=== PATIENT | female | born 1960 | race Caucasian/White ===

== ENCOUNTER → 2020-10-16 12:33 | Outpatient (CLI) | payer OTHER, SELFPAY ==
--- NOTE | 2020-10-16 | DI.RAD.S_ITS ---
PROCEDURE: XR LUMBAR SPINE 2-3V INDICATIONS: BACK/LEG PAIN TECHNIQUE: 3 views of the lumbar spine were acquired. Lateral view is limited by obliquity COMPARISON: None. FINDINGS: Bones: 5 [id number] vertebrae are present. There is normal bony alignment. No vertebral body compression fractures. No suspicious bony lesions. Soft tissues: Overlying bowel gas pattern is normal. No suspicious soft tissue calcifications. IMPRESSION: Unremarkable lumbar spine radiographs Dictated by: Konrad Hawley M.D. on 10/16/2020 at 13:51 Approved by: Konrad Hawley M.D. on 10/16/2020 at 14:12
== END ==
PROVIDERS: Referring Provider Chiropractor; Visit Provider Chiropractor
DX: M54.5 Low back pain (principal); M79.605 Pain in left leg
CPT/HCPCS: 72100

== ENCOUNTER 2022-11-18 17:11 | Emergency (ER) | payer OTHER, SELFPAY ==
[2022-11-18 17:46] VITALS: BP 148/99; PULSE 76; RESP 16; TEMP 36.1; O2SAT 99; BMI 30.7
--- NOTE | 2022-11-18 17:51 | DI.RAD.S_ITS ---
PROCEDURE: XR CHEST 1V INDICATIONS: chest pain TECHNIQUE: One view of the chest was acquired. COMPARISON: None. FINDINGS: Surgical changes and devices: None. Lungs and pleura: Lungs are clear. No pleural effusions or pneumothorax. Mediastinum: Mediastinal contours appear normal. Heart size is normal. Bones and chest wall: No suspicious bony lesions. Overlying soft tissues appear unremarkable. IMPRESSION: No acute pulmonary process. Dictated by: Liberty Salmeron M.D. on 11/18/2022 at 18:22 Approved by: Liberty Salmeron M.D. on 11/18/2022 at 18:22
[2022-11-18 18:30] LABS: Prothrombin Time 11.2 SECONDS (10.1-12.7)
[2022-11-18 18:33] LABS: PTT Partial Thromboplastin Tim 32 SECONDS (26-36)
[2022-11-18 18:37] LABS: Alanine Aminotransferase 57 IU/L (<35); Albumin 4.7 g/dL (3.5-5.0); Albumin Globulin Ratio 1.5 (1.0-2.8); Alkaline Phosphatase 72 U/L (38-126); Aspartate Aminotransferase 37 IU/L (14-36); BUN Creatinine Ratio 22.4 (6-22); Bilirubin Total 0.5 mg/dL (0.2-1.3); Blood Urea Nitrogen 17 mg/dL (7-17); Calcium 9.8 mg/dL (8.4-10.2); Carbon Dioxide 24 mmol/L (22-32); Chloride 104 mmol/L (98-107); Creatine Kinase 129 U/L (30-135); Estimated Glomerular Filt Rate > 60 mL/min (>60); Globulin 3.2 g/dL (1.7-4.1); Glucose 92 mg/dL (80-110); HEMOLYSIS < 15 (0-50); Lipase 117 U/L (23-300); Magnesium 1.9 mg/dL (1.6-2.3); Potassium 3.9 mmol/L (3.4-5.1); Sodium 137 mmol/L (137-145); Total Protein 7.9 g/dL (6.3-8.2)
[2022-11-18 18:48] LABS: Add Manual Diff / Slide Review NO; Basophils Absolute Auto 0 /uL (0-100); Basophils Percent Auto 0.5 % (0-2); Eosinophils Absolute Auto 100 /uL (0-450); Eosinophils Percent Auto 2.8 % (2-4); Hematocrit 39.3 % (36-46); Hemoglobin 13.8 g/dL (12.0-16.0); Lymphocytes Absolute Auto 1200 /uL (1100-4500); Lymphocytes Percent Auto 23.5 % (25-40); Mean Corpuscular HGB Conc 35.1 % (30-36); Mean Corpuscular Hemoglobin 32.5 PG (26-34); Mean Corpuscular Volume 92.6 fL (80-100); Monocytes Absolute Auto 400 /uL (0-900); Monocytes Percent Auto 6.9 % (3-14); Neutrophils Absolute Auto 3400 /uL (1500-7000); Neutrophils Percent Auto 66.3 % (50-75); Platelet Count 287 X10^3/uL (150-400); Red Blood Cell Count 4.24 X10^6/uL (4.0-5.2); Red Cell Distribution Width 12.6 % (11.6-14.8); White Blood Cell Count 5.1 X10^3/uL (4.5-11.0)
[2022-11-18 18:49] LABS: Troponin I < 0.012 ng/mL (0.01-0.034)
[2022-11-18] MEDS: ASPIRIN 81 MG CHEW TAB 324 MG PO (21:29)
[2022-11-18 21:39] VITALS: BP 171/95; PULSE 67; RESP 16; O2SAT 99
[2022-11-18 21:40] LABS: Creatine Kinase 102 U/L (30-135)
[2022-11-18 22:08] LABS: Troponin I < 0.012 ng/mL (0.01-0.034)
--- NOTE | 2022-11-18 22:19 | ED_ITS ---
HPI - Chest Pain General Chief Complaint: Chest Pain Stated Complaint: Chest tightness,L arm achey, indigestion Time Seen by Provider: 11/18/22 18:12 Source: patient Mode of arrival: Ambulatory Limitations: no limitations History of Present Illness HPI narrative: Patient is a 61-year-old female who is here for evaluation of chest tightness and achiness in her left arm. No shortness of breath. No fevers. No nausea or vomiting. She is never had symptoms like this in the past. It started yesterday afternoon when she was at home. Nothing makes it worse or better. She is not tried anything for the symptoms prior to arrival. She is had consistent symptoms since the onset. She went to bed with it last night. She woke up with it this morning. Has had it all day today. Has never had any risk stratification testing. Had a mother and father who both had heart attacks in their late 60s. Related Data Previous Rx's Medication Instructions Recorded prednisone 20 mg tablet 20 mg PO DAILY #6 tabs 11/18/22 Allergies Allergy/AdvReac Type Severity Reaction Status Date / Time No Known Drug Allergies Allergy Verified 11/18/22 17:46 Review of Systems Constitutional Constitutional: Reports system reviewed and no additional complaints, except as documented Cardiovascular Cardiovascular: Reports system reviewed and no additional complaints, except as documented Respiratory Respiratory: Reports system reviewed and no additional complaints, except as documented Integumentary/Breasts Skin/Breast: Reports system reviewed and no additional complaints, except as documented Neurologic Neurologic: Reports system reviewed and no additional complaints, except as documented Hematologic/Lymphatic On Anticoagulants: No Patient History Social History Smoking Status: Never smoker Smoking Status: Never smoker alcohol intake frequency: a few times a week Substance Use Type: does not use Exam Initial Vital Signs Initial Vital Signs: Vital Signs Temperature 97.0 F L 11/18/22 17:46 Pulse Rate 76 11/18/22 17:46 Respiratory Rate 16 11/18/22 17:46 Blood Pressure 148/99 H 11/18/22 17:46 Pulse Oximetry 99 11/18/22 17:46 Oxygen Delivery Method Room Air 11/18/22 17:46 Const General: cooperative, comfortable and No ill appearing HENMT Head: normal to inspection and normocephalic Resp Effort & Inspection: normal respiratory effort Auscultation: clear to auscultation bilaterally Cardio Rate: regular rate Rhythm: regular rhythm Neuro General: patient alert, patient awake and moves all extremities Extrem General: normal to inspection and capillary refill normal Psych Appearance: grossly normal and well kempt Scores HEART Score Heart Score history: Slightly Suspicious Heart Score EKG: Normal Heart Score Age: 45-64 years old Heart Score risk factors: 1-2 risk factors Heart Score troponin: < or = to normal limit Heart Score Total: 2 Course Orders Ordered: ED Orders 11/18/22 17:51 XR chest 1V Stat EKG-12 Lead Stat 11/18/22 18:15 Complete Blood Count AUTO DIFF Stat Comprehensive Metabolic Panel Stat Lipase Stat Magnesium Stat PTT Partial Thromboplastin Gurvinder Stat Prothrombin Time INR Stat Troponin & CK Cardiac Panel Stat 11/18/22 21:10 Troponin & CK Cardiac Panel Stat Discontinued Medications Albuterol (Albuterol Hfa Prepack) 1 box MISC SEEINSTR ONE Stop: 11/18/22 22:20 Last Admin: 11/18/22 22:44 Dose: Not Given Documented By: MINAL Aspirin (Aspirin 81 Mg Chew Tab) 324 mg PO NOW ONE Stop: 11/18/22 17:52 Last Admin: 11/18/22 21:29 Dose: 324 mg Documented By: SB Vital Signs Vital signs: Vital Signs - 8 hr 11/18/22 21:39 11/18/22 22:57 Pulse Rate 67 66 Respiratory Rate 16 Blood Pressure 171/95 H Pulse Oximetry 99 96 Oxygen Delivery Method Room Air Room Air MDM - Chest Pain Lab Data Attestation: I reviewed the patient's lab results. 11/18/22 18:15 11/18/22 18:15 Labs: Lab Results 11/18/22 11/18/22 11/18/22 Range/Units 18:15 18:15 18:15 WBC 5.1 (4.5-11.0) X10^3/uL RBC 4.24 (4.0-5.2) X10^6/uL Hgb 13.8 (12.0-16.0) g/dL Hct 39.3 (36-46) % MCV 92.6 (80-100) fL MCH 32.5 (26-34) PG MCHC 35.1 (30-36) % RDW 12.6 (11.6-14.8) % Plt Count 287 (150-400) X10^3/uL Neut % (Auto) 66.3 (50-75) % Lymph % (Auto) 23.5 L (25-40) % Clayton % (Auto) 6.9 (3-14) % Eos % (Auto) 2.8 (2-4) % Baso % (Auto) 0.5 (0-2) % Neut # (Auto) 3400 (2581-5241) /uL Lymph # (Auto) 1200 (6834-8875) /uL Clayton # (Auto) 400 (0-900) /uL Eos # (Auto) 100 (0-450) /uL Baso # (Auto) 0 (0-100) /uL PT 11.2 (10.1-12.7) SECONDS INR 1.0 (0.9-1.3) APTT 32 (26-36) SECONDS Sodium 137 (137-145) mmol/L Potassium 3.9 (3.4-5.1) mmol/L Chloride 104 (98-107) mmol/L Carbon Dioxide 24 (22-32) mmol/L BUN 17 (7-17) mg/dL Creatinine 0.76 (0.52-1.04) mg/dL Estimated GFR > 60 (>60) mL/min BUN/Creatinine Ratio 22.4 H (6-22) Glucose 92 (80-110) mg/dL Calcium 9.8 (8.4-10.2) mg/dL Magnesium 1.9 (1.6-2.3) mg/dL Total Bilirubin 0.5 (0.2-1.3) mg/dL AST 37 H (14-36) IU/L ALT 57 H (<35) IU/L Alkaline Phosphatase 72 (38-126) U/L Total Creatine Kinase 129 (30-135) U/L CK-MB (CK-2) TNP CK-MB (CK-2) Rel Index TNP Troponin I < 0.012 (0.01-0.034) ng/mL Total Protein 7.9 (6.3-8.2) g/dL Albumin 4.7 (3.5-5.0) g/dL Globulin 3.2 (1.7-4.1) g/dL Albumin/Globulin Ratio 1.5 (1.0-2.8) Lipase 117 (23-300) U/L 11/18/22 Range/Units 21:10 WBC (4.5-11.0) X10^3/uL RBC (4.0-5.2) X10^6/uL Hgb (12.0-16.0) g/dL Hct (36-46) % MCV (80-100) fL MCH (26-34) PG MCHC (30-36) % RDW (11.6-14.8) % Plt Count (150-400) X10^3/uL Neut % (Auto) (50-75) % Lymph % (Auto) (25-40) % Clayton % (Auto) (3-14) % Eos % (Auto) (2-4) % Baso % (Auto) (0-2) % Neut # (Auto) (3347-6798) /uL Lymph # (Auto) (9215-3891) /uL Clayton # (Auto) (0-900) /uL Eos # (Auto) (0-450) /uL Baso # (Auto) (0-100) /uL PT (10.1-12.7) SECONDS INR (0.9-1.3) APTT (26-36) SECONDS Sodium (137-145) mmol/L Potassium (3.4-5.1) mmol/L Chloride (98-107) mmol/L Carbon Dioxide (22-32) mmol/L BUN (7-17) mg/dL Creatinine (0.52-1.04) mg/dL Estimated GFR (>60) mL/min BUN/Creatinine Ratio (6-22) Glucose (80-110) mg/dL Calcium (8.4-10.2) mg/dL Magnesium (1.6-2.3) mg/dL Total Bilirubin (0.2-1.3) mg/dL AST (14-36) IU/L ALT (<35) IU/L Alkaline Phosphatase (38-126) U/L Total Creatine Kinase 102 (30-135) U/L CK-MB (CK-2) TNP CK-MB (CK-2) Rel Index TNP Troponin I < 0.012 (0.01-0.034) ng/mL Total Protein (6.3-8.2) g/dL Albumin (3.5-5.0) g/dL Globulin (1.7-4.1) g/dL Albumin/Globulin Ratio (1.0-2.8) Lipase (23-300) U/L Imaging Data Chest x-ray: Radiologist's Impression: PROCEDURE:? XR CHEST 1V ? INDICATIONS:? chest pain ? TECHNIQUE:? One view of the chest was acquired.? ? COMPARISON:? None. ? FINDINGS:? ? Surgical changes and devices:? None.? ? Lungs and pleura:? Lungs are clear.? No pleural effusions or pneumothorax.? ? Mediastinum:? Mediastinal contours appear normal.? Heart size is normal.? ? Bones and chest wall:? No suspicious bony lesions.? Overlying soft tissues appear unremarkable.? ? IMPRESSION:? No acute pulmonary process. ECG Data Attestation: I personally reviewed and interpreted this ECG as follows: Interpretation: Sinus rhythm Ventricular rate is 72 Normal axis Normal QRS Normal QTC No ST T wave changes MDM Narrative Medical decision making narrative: Patient has had 2- troponins. The 1st troponin was greater than 12 hours after the onset of consistent symptoms. She has a low risk heart score. Low suspicion for ACS however given her family history she does require further risk stratification and advised that she contact her primary doctor to discuss this. Her chest x-ray is unremarkable. I have low suspicion for pulmonary embolism. Will discharge patient home strict return precautions. She expressed understanding and agreement with plan. Discharge Plan Departure Patient Disposition: Home Clinical Impression: Atypical chest pain Instructions: DI for Atypical Chest Pain Activity Restrictions/Additional Instructions: I do recommend that you talk with your primary doctor about the indications for a stress test. Continue to take all medications as directed. Return to the em ergency department for new or worsening symptoms. The prednisone that was sent to [facility] was inadvertently placed under your chart. You do not need to take the prednisone. You can tell the pharmacy not to fill this prescription if they call you. Prescriptions: New prednisone 20 mg tablet 20 mg PO DAILY Qty: 6 0RF Referrals: Miscellaneous,[facility] [Primary Care Provider] - Stand Alone Forms: Patient Portal/API
[2022-11-18 22:57] VITALS: PULSE 66; O2SAT 96
== END 2022-11-18 22:58 | disposition home or self-care (01) ==
PROVIDERS: Emergency Medicine; Emergency Provider Emergency Medicine
DX: R07.89 Other chest pain (principal)
CPT/HCPCS: 71045; 80053; 82550; 83690; 83735; 84484; 85025; 85610; 85730; 93005; 99283; 99284